=== PATIENT | female | born 1970 | race Caucasian/White ===

== ENCOUNTER 2017-11-28 15:11 | Emergency (ER) | payer OTHER ==
[2017-11-28 16:03] VITALS: BP 96/63
--- NOTE | 2017-11-28 16:41 | UC ---
Knee Pain HPI - HPI Summary HPI Summary: 47 y/o female presents to the urgent care c/o RT knee and Rt leg pain s/p stepping on a hole and falling yesterday at 1000am. Pt states pain was not as bad and she could bear weight and walk w/ limping. Last night she had to work standing all night and this morning she woke upe w/ mild keen swelling and severe pain. Pain is 8/10 sharp upon walking and movement, radiating to the RT lower leg w/ some numbness and tingling over the Rt foot. she applied cold compresses and took Ibuprofen PO 400mg to alleviate symptoms last night. Pt denies calf pain, fever, SOB, palpitations, chest pain, abdominal pain, N/V/D. Hx of uterine ablation. - History of Current Complaint Chief Complaint: UCLowerExtremity Stated Complaint: RIGHT LEG PAIN/S/P FALL Time Seen by Provider: 11/28/17 16:31 Hx Obtained From: Patient Hx Last Menstrual Period: 08/17/15 ?: No - Hx of uterine ablation Onset/Duration: Sudden Onset, Lasting Days - 1 day, Still Present, Worse Since - this morning Severity Initially: Moderate Severity Currently: Severe Location Of Injury: RT knee Pain Intensity: 8 Pain Scale Used: 0-10 Numeric Character: Sharp Aggravating Factor(s): Movement, Prolonged Standing, Stairs Alleviating Factor(s): Rest, OTC Meds Associated Signs And Symptoms: Positive: Numbness, Tingling - RT foot. Negative : Bruising, Fever, Weakness Able to Bear Weight: Yes - Risk Factors Septic Arthritis Risk Factor: Negative Gout Risk Factor: Negative - Allergies/Home Medications Allergies/Adverse Reactions: Allergies Allergy/AdvReac Type Severity Reaction Status Date / Time Sulfa (Sulfonamide Allergy Swelling Verified 11/28/17 16:01 Antibiotics) Of Face,Lips,& Throat environmental Allergy Hives Uncoded 11/28/17 16:01 PMH/Surg Hx/FS Hx/Imm Hx Previously Healthy: Yes - Pt denies PMHX - Surgical History Surgical History: Yes Surgery Procedure, Year, and Place: lump removed left side of chest 2002, right tennis elbow '; tubal ligatioin 1999, barretts esophagus - Family History Known Family History: Positive: Hypertension, Diabetes - Social History Occupation: Employed Full-time Lives: With Family Alcohol Use: Occasionally Alcohol Amount: 1 times per week Substance Use Type: None Smoking Status (MU): Never Smoked Tobacco Review of Systems Constitutional: Negative Skin: Negative Eyes: Negative ENT: Negative Respiratory: Negative Cardiovascular: Negative Gastrointestinal: Negative Genitourinary: Negative Motor: Negative Neurovascular: Negative Musculoskeletal: Decreased ROM - RT knee, Other: - RT knee pain and RT lower leg pain Neurological: Negative Psychological: Negative Is Patient Immunocompromised?: No All Other Systems Reviewed And Are Negative: Yes Physical Exam - Summary Physical Exam Summary: Vital Signs Reviewed: Yes General: well developed, well nourished female sitting in the examining table w/ o any apparent distress Eyes: Positive: Conjunctiva Clear - PERRLA, EOMI, fundi grossly normal ENT: Positive: Normal ENT inspection, Hearing grossly normal, Pharynx normal, TMs normal Neck: Positive: Supple, Nontender, No Lymphadenopathy Respiratory: Positive: Chest nontender, Lungs clear, Normal breath sounds, No respiratory distress Cardiovascular: Positive: RRR, No Murmur, Pulses Normal, Brisk Capillary Refill Abdomen Description: Positive: Nontender, No Organomegaly, Soft. Negative: CVA Tenderness (R), CVA Tenderness (L) Bowel Sounds: Positive: Present Musculoskeletal: Positive: Strength Intact, No Edema,RT Knee: Pt is able to bear weight and ambulate with limping. No surface trauma, soft tissue swelling, or obvious effusion. No overlying erythema or warmth. The RT knee is without obvious asymmetry or deformity when compared with the LF knee. Decreased ROM of LF knee due to pain. No tenderness to palpation of the patella, no effusion or ballottement. No tenderness over the infrapatellar tendon. No Point tenderness over the medial joint line, PT tenderness over lateral tibial plateaus. No tenderness over the proximal fibular head, No tenderness, fullness or mass of the popliteal fossa. No quadriceps tenderness. No laxity of the ACL. PCL, MCL, or LCL. no collateral ligament laxity to valgus or varus stress. Negative Magdalene/Drawer sign. Negative Lizzette unable to perform due to pain. Distal motor and neurovascular status intact. Neurological Exam: Normal Psychological Exam: Normal Skin Exam: Normal Triage Information Reviewed: Yes Vital Signs: Initial Vital Signs Temp 99.2 F 11/28/17 15:54 Pulse 71 11/28/17 15:54 Resp 15 11/28/17 15:54 BP 96/63 11/28/17 15:54 Pulse Ox 100 11/28/17 15:54 Knee Pain Course/Dx - Course Course Of Treatment: 47 y/o female presents to the urgent care c/o RT knee and Rt leg pain s/p stepping on a hole and falling yesterday at 1000am. Pt states pain was not as bad and she could bear weight and walk w/ limping. Last night she had to work standing all night and this morning she woke upe w/ mild keen swelling and severe pain. Pain is 8/10 sharp upon walking and movement, radiating to the RT lower leg w/ some numbness and tingling over the Rt foot. she applied cold compresses and took Ibuprofen PO 400mg to alleviate symptoms last night. Pt denies calf pain, fever, SOB, palpitations, chest pain, abdominal pain, N/V/D. Hx of uterine ablation. Hx obtained. RT knee and Rt leg X-ray ordered. Impression:No acute osseous injury or fracture observed.Probably a knee sprain. Pt's knee immobilized w/ knee brace and advised RICE. Rx Ibuprofen PO and advised to Avoid strenuous exercise or standing for long period of time and if not improvement of symptoms to f/u with Orthopedic Dr Fine or PCP in 1 week for further evaluation and treatment. PT understood and agreed with D/C instructions. - Differential Dx/Diagnosis Differential Diagnosis/HQI/PQRI: Abrasion, Contusion, Fracture (Closed), Sprain , Strain, Tendonitis Provider Diagnoses: 1- Acute Rt knee and lower leg pain s/p fall. 2-RT knee sprain Discharge - Sign-Out/Discharge Documenting (check all that apply): Discharge/Admit/Transfer - D/C home - Discharge Plan Condition: Stable Disposition: HOME Prescriptions: Ibuprofen TAB* [Motrin TAB* 600 MG] 600 mg PO Q6H PRN #30 tab PRN Reason: Pain Patient Education Materials: Knee Sprain (ED) Forms: *Work Release Referrals: Joanne Heard MD [Primary Care Provider] - 1 Week Brooklyn Fine MD [Medical Doctor] - 1 Week Additional Instructions: 1-Please take medications as directed to alleviate pain and swelling. 2-Please apply ice, keep your knee immobilized with the Knee immobilizer. avoid strenuous exercise or standing for long periods of time 3- Please f/u with Orthopedic DR Fine or your PCP in 1 week is not improvement of symptoms for further evaluation and treatment. - Billing Disposition and Condition Condition: STABLE Disposition: Home
[2017-11-28] MEDS ORDERED: Ibuprofen TAB* 400 MG PO ONE (16:45)
--- NOTE | 2017-11-28 17:34 | RAD ---
Indication: Right knee pain after fall 2 views of the right lower leg demonstrates no fracture. Ankle mortise is intact. No other bone or joint abnormality is noted. IMPRESSION: No fracture of the right lower leg is noted.
--- NOTE | 2017-11-28 17:35 | RAD ---
Indication: Right knee pain. 4 views of the right knee demonstrates no fracture. No other bone or joint abnormality is noted. IMPRESSION: No fracture of the right knee is noted.
== END 2017-11-28 17:50 | disposition home or self-care (01) ==
LOC: UCCORT 15:11
DX: S93.601A Unspecified sprain of right foot, initial encounter (principal); M79.661 Pain in right lower leg; W17.2XXA Fall into hole, initial encounter; Y93.9 Activity, unspecified; Y92.9 Unspecified place or not applicable; Z88.2 Allergy status to sulfonamides
CPT/HCPCS: 99213; A9270-GY; G0463

== ENCOUNTER 2018-01-21 13:34 | Emergency (ER) | payer OTHER ==
[2018-01-21 14:10] VITALS: BP 113/71
--- NOTE | 2018-01-21 14:55 | UC ---
Upper Extremity HPI - HPI Summary HPI Summary: Pt c/o left wrist pain after falling on 01/06 with FOOSH and last night after lifting a heavy object last night and hearing a "pop" sudden onset of pain and numbness. - History of Current Complaint Chief Complaint: UCUpperExtremity Stated Complaint: LEFT WRIST COMPLAINT Time Seen by Provider: 01/21/18 14:40 Hx Obtained From: Patient Hx Last Menstrual Period: ABLATION ?: No Onset/Duration: Sudden Onset, Lasting Days, Still Present Severity Initially: Moderate Severity Currently: Moderate Pain Intensity: 8 Location Of Pain: Is Discrete @ - left lateral wrist Character: Dull, Aching, Burning Aggravating Factor(s): Movement, Lifting Alleviating Factor(s): Rest Associated Signs And Symptoms: Positive: Numbness/Tingling Related History: Dominant Hand Right - Risk Factors Non-Orthopedic Risk Factor: Negative DVT Risk Factors: Negative Septic Arthritis Risk Factor: Negative Compartment Syndrome Risk Factors: Pain, Paresthesias - Allergies/Home Medications Allergies/Adverse Reactions: Allergies Allergy/AdvReac Type Severity Reaction Status Date / Time Sulfa (Sulfonamide Allergy Swelling Verified 11/28/17 16:01 Antibiotics) Of Face,Lips,& Throat environmental Allergy Hives Uncoded 11/28/17 16:01 Home Medications: Home Medications NK [No Home Medications Reported] 01/21/18 [History Confirmed 01/21/18] PMH/Surg Hx/FS Hx/Imm Hx Previously Healthy: Yes - Surgical History Surgical History: Yes Surgery Procedure, Year, and Place: lump removed left side of chest 2002, right tennis elbow '; tubal ligatioin 1999, barretts esophagus, UTERINE ABLATION - Family History Known Family History: Positive: None, Hypertension, Diabetes - Social History Occupation: Employed Full-time Lives: With Family Alcohol Use: Occasionally Alcohol Amount: 1 times per week Substance Use Type: None Smoking Status (MU): Never Smoked Tobacco Have You Smoked in the Last Year: No Review of Systems Constitutional: Negative Skin: Negative Eyes: Negative ENT: Negative Respiratory: Negative Cardiovascular: Negative Gastrointestinal: Negative Genitourinary: Negative Motor: Decreased ROM - left wrist, Weakness - left wrist Neurovascular: Negative Musculoskeletal: Arthralgia, Decreased ROM, Myalgia Neurological: Numbness Psychological: Negative Is Patient Immunocompromised?: No All Other Systems Reviewed And Are Negative: Yes Physical Exam Triage Information Reviewed: Yes Appearance: Well-Appearing Vital Signs: Initial Vital Signs Temp 98.8 F 01/21/18 14:03 Pulse 72 01/21/18 14:03 Resp 16 01/21/18 14:03 BP 113/71 01/21/18 14:03 Pulse Ox 100 01/21/18 14:03 Vital Signs Reviewed: Yes Eye Exam: Normal ENT Exam: Normal Neck exam: Normal Respiratory Exam: Normal Cardiovascular Exam: Normal Musculoskeletal: Positive: Strength Limited @ - left wrist, ROM Limited @ - left wrist Neurological Exam: Normal Neurological: Positive: Alert Psychological Exam: Normal Skin Exam: Normal Diagnostics - Radiology No standard instances Radiology Interpretation Completed By: Radiologist - REPORT: The visualized bones are properly aligned and well corticated. The joint spaces are normal.There is no fracture, dislocation or other focal osseous abnormality. IMPRESSION: No radiographically apparent fracture or dislocation. If the patient's symptoms persist, follow-up imaging is recommended. Upper Extremity Course/Dx - Differential Dx/Diagnosis Differential Diagnosis/HQI/PQRI: Contusion, Fracture (Closed), Strain, Sprain Provider Diagnoses: left wrist contusion. left wrist strain Discharge - Sign-Out/Discharge Documenting (check all that apply): Patient Departure - Discharge Plan Condition: Stable Disposition: HOME Patient Education Materials: Arthralgia (ED) Referrals: Ramonita Adams MD [Primary Care Provider] - If Needed Ita Ontiveros MD [Medical Doctor] - Additional Instructions: Per institutional requirements, I have reviewed the chart, however, I was not consulted specifically or made aware of this patient by the above midlevel provider. I did not personally evaluate, interact with , or disposition this patie - Billing Disposition and Condition Condition: STABLE Disposition: Home
--- NOTE | 2018-01-21 16:04 | RAD ---
INDICATION: Pain and numbness at the left wrist. COMPARISON: None. TECHNIQUE: 3 views left wrist. REPORT: The visualized bones are properly aligned and well corticated. The joint spaces are normal.There is no fracture, dislocation or other focal osseous abnormality. IMPRESSION: No radiographically apparent fracture or dislocation. If the patient's symptoms persist, follow-up imaging is recommended.
== END 2018-01-21 16:15 | disposition home or self-care (01) ==
LOC: UCCORT 13:34
DX: S60.212A Contusion of left wrist, initial encounter (principal); S66.912A Strain of unspecified muscle, fascia and tendon at wrist and hand level, left hand, initial encounter; M25.532 Pain in left wrist; Z88.2 Allergy status to sulfonamides; Z91.09 Other allergy status, other than to drugs and biological substances; X50.0XXA Overexertion from strenuous movement or load, initial encounter; Y93.89 Activity, other specified; Y92.9 Unspecified place or not applicable
CPT/HCPCS: 99212; G0463

== ENCOUNTER 2018-03-12 13:36 | Emergency (ER) | payer OTHER ==
--- OUTSIDE RECORDS SUMMARY | 2018-03-12 13:54 | XMS REPORT ---
:1970 External Reference #:[id number] Author Organization [facility] Address [address] [place] [address] Phone [phone] Care Team Providers Name Role Phone Raf Razo MD Care Team Information Pearl Restorer Unavailable Joanne Heard MD Primary Care Physician Unavailable Payers Type Date Identification Numbers Payment Provider Subscriber Commercial Effective: Policy Number: [id number] [facility] ANISH Reinoso 2014 PayID: [id number] [address] [place] [address] Problems Date Description Provider Status Onset: 03/05/2018 Allergy status to oth Ian Eaton MD Active drug/meds/biol subst status Social History Type Date Description Comments Home Environment Unfinished Basement Home Environment The basement is wet Home Environment The floors are tile Home Environment The floors are wood Home Environment Uses oil heating Home Environment [place] Heat Smoke-Free Home is smoke-free Smoke-Free Work is smoke-free Pets 3 cats Pets several cats 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 No Second Hand Smoke Exposure Smoking Patient smoking status is unknown Allergies, Adverse Reactions, Alerts Date Description Reaction Status Severity Comments 03/05/2018 Sulfa Antibiotics Turns skin red active 03/05/2018 Adhesives Red rash active Medications Medication Date Status Form Strength Qnty SIG Indications Ordering Provider Ranitidine HCL Active Tablets 150mg Raf Razo MD Vital Signs Date Vital Result Comment 03/05/2018 BP Systolic 96 mmHg BP Diastolic 60 mmHg Height 64.5 inches 5'4.50" Weight 107.50 lb BMI (Body Mass Index) 18.2 kg/m2 Heart Rate 73 /min Respiratory Rate 14 /min Body Temperature 98.5 F O2 % BldC Oximetry 99 % Results Description No Information Procedures Description No Information Plan of Care No Information Available
--- OUTSIDE RECORDS SUMMARY | 2018-03-12 13:54 | XMS REPORT ---
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 Joanne Heard MD Primary Care Physician Unavailable Payers Type Date Identification Numbers Payment Provider Subscriber Commercial Effective: Policy Number: [id number] [facility] ANISH Reinoso 2014 PayID: [id number] [address] [place] [address] Problems Date Description Provider Status Onset: 03/05/2018 Allergy status to oth Ian Eaton MD Active drug/meds/biol subst status Social History Type Date Description Comments Home Environment Unfinished Basement Home Environment The basement is wet Home Environment The floors are tile Home Environment The floors are wood Home Environment Uses oil heating Home Environment [place] Heat Smoke-Free Home is smoke-free Smoke-Free Work is smoke-free Pets 3 cats Pets several cats 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
--- OUTSIDE RECORDS SUMMARY | 2018-03-12 13:54 | XMS REPORT ---
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 Joanne Heard MD Primary Care Physician Unavailable Payers Type Date Identification Numbers Payment Provider Subscriber Commercial Effective: Policy Number: [id number] [facility] ANISH Reinoso 2014 PayID: [id number] [address] [place] [address] Problems Description No Information Social History Type Date Description Comments Home Environment Unfinished Basement Home Environment The basement is wet Home Environment The floors are tile Home Environment The floors are wood Home Environment Uses oil heating Home Environment Green Heat Smoke-Free Home is smoke-free Smoke-Free Work is smoke-free Pets 3 cats Pets several cats 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
--- OUTSIDE RECORDS SUMMARY | 2018-03-12 13:55 | XMS REPORT ---
:1970 External Reference #:[id number] Author Organization [facility] Address [address], [address] [place] [address] Phone [phone] Care Team Providers Name Role Phone Madie Delatorre PA Care Team Information Polysomnography Technologist Unavailable Joanne Heard MD Primary Care Physician Unavailable Payers Type Date Identification Numbers Payment Provider Subscriber Commercial Policy Number: [id number] [place] [employer] Mini Reinoso PayID: [id number] [address] [place] [address] Medicaid Expires: 2014 Policy Number: [id number] Medicaid Mini Reinoso PayID: [id number] [address] [place] [address] Problems Date Description Provider Status Onset: 02/07/2017 Digestive symptom Rfa Razo MD Active Onset: 02/07/2017 Abdominal pain Raf Razo MD Active Onset: 05/24/2016 Casas's esophagus Raf Razo MD Active Onset: 05/24/2016 Gastroduodenitis Raf Razo MD Active Onset: 04/07/2016 Abnormal findings diagnostic imaging of Raf Razo MD Active liver+biliary tract Onset: 04/07/2016 Generalized abdominal tenderness Raf Razo MD Active Onset: 04/07/2016 Right upper quadrant pain Raf Razo MD Active Family History Date Family Member(s) Problem(s) Comments Onset: (age 70 Years) Father Colon Polyps Social History Type Date Description Comments Marital Status Home Environment Lives With Occupation [employer] Work Status Currently Working ETOH Use Occasionally consumes alcohol Smoking Patient has never smoked Recreational Drug Use Denies Drug Use Allergies, Adverse Reactions, Alerts Date Description Reaction Status Severity Comments 04/07/2016 Keflex active 04/07/2016 Sulfa Drugs active 04/07/2016 Tussin DM active 05/24/2016 Prilosec active Medications Medication Date Status Form Strength Qnty SIG Indications Ordering Provider No Active Active Unknown Medications 018 No Active Hx Unknown Medications 017 - 017 Bentyl Hx Capsules 10mg 90caps cap by R10.30 Ruddy Mercedes - mouth three 018 times a day as needed for crampy abd pain Esomeprazole Hx Capsules 20mg 90caps 1 cap by K22.70 Yenny Mercedes 017 - DR zackary PARHAM every day 018 every morning Omeprazole Hx Tablets DR 20mg 1 tab by R10.11 Link Mercedes MD every day every morning Dicyclomine HCL Hx Capsules 10mg 90caps 1 cap by R10.817 Link Mercedes mouth for MD abd pain as needed Prilosec Hx Capsules 40mg 30caps 1 tab by R10.11 Link Mercedes - DR mouth every day 016 every morning Ibuprofen 00/00/0 Hx Capsules 200mg as needed Unknown 000 Vital Signs Date Vital Result Comment 02/20/2018 BP Systolic Sitting Left Arm 100 mmHg BP Diastolic Sitting Left Arm 74 mmHg Heart Rate 72 /min Respiratory Rate 16 /min Height 63 inches 5'3" Weight 106.00 lb BMI (Body Mass Index) 18.8 kg/m2 BSA (Body Surface Area) 1.48 m2 Buras body weight in kilograms 52 O2 % BldC Oximetry 98 % 02/07/2017 BP Systolic Sitting Left Arm 104 mmHg BP Diastolic Sitting Left Arm 74 mmHg Heart Rate 72 /min Respiratory Rate 16 /min Height 63 inches 5'3" Weight 97.00 lb BMI (Body Mass Index) 17.2 kg/m2 BSA (Body Surface Area) 1.42 m2 Buras body weight in kilograms 52 05/24/2016 BP Systolic Sitting Left Arm 110 mmHg BP Diastolic Sitting Left Arm 76 mmHg Heart Rate 77 /min Respiratory Rate 16 /min Height 63 inches 5'3" Weight 107.00 lb BMI (Body Mass Index) 19.0 kg/m2 BSA (Body Surface Area) 1.48 m2 04/07/2016 BP Systolic Sitting Left Arm 104 mmHg BP Diastolic Sitting Left Arm 70 mmHg Heart Rate 75 /min Respiratory Rate 16 /min Height 63 inches 5'3" Weight 106.00 lb BMI (Body Mass Index) 18.8 kg/m2 BSA (Body Surface Area) 1.48 m2 Buras body weight in kilograms 52 Results Test Date Test Result H/L Range Note Laboratory test finding 02/13/2017 Calprotectin, Fecal 20 ug/g 0-120 1, 2 Pancreatic Elastase (Pe-1) 432.0 ug/g >200 1, 3 Fecal Fat, Qualitative 02/13/2017 Fats, Neutral Normal . 1, 4 Fats, Total Normal . 1, 5 Stool Culture 02/13/2017 Stool Culture NO ENTERIC PATHO <SEE NOTE> 1, 6 . ................ <SEE NOTE> 1, 7 Note: INCLUDES TESTING <SEE NOTE> 1, 8 . PLESIOMONAS, CAM <SEE NOTE> 1, 9 . ................ <SEE NOTE> 1, 10 . YERSINIA AND VIB <SEE NOTE> 1, 11 . SHOULD BE REQUES <SEE NOTE> 1, 12 Shiga Toxin 1 Antigen SHIGA TOXIN 1 NO <SEE NOTE> 1, 13 Shiga Toxin 2 Antigen SHIGA TOXIN 2 NO <SEE NOTE> 1, 14 Ova & Parasite 02/13/2017 Cryptosporidium Specific NEGATIVE FOR CRY 1, 15 Antigen Screen Ag <SEE NOTE> Giardia Specific Antigen NEGATIVE FOR LOLY <SEE NOTE> 1, 16 Celiac Disease Comp AB Profile 02/08/2017 Immunoglobulin A 334 mg/dL 87- 352 17 Antigliadin Abs, IgG 2 units 0-19 17, 18 Antigliadin Abs, IgA 12 units 0-19 17, 19 Endomysial IgA Antibody Negative Negative 17 t-Transglutaminase IgA <2 U/mL 0-3 17, 20 t-Transglutaminase IgG <2 U/mL 0-5 17, 21 Laboratory test finding 02/08/2017 TSH Reflex FT4 and/or 0.44 uIU/mL 0.30 -4.20 17 FT3 Calprotectin, Fecal <pending> 17 Laboratory test finding 02/08/2017 Ova & Parasite Antigen Screen <pending> 17 Laboratory test finding 02/08/2017 C-Reactive Protein,Quant < 2.9 mg/L < 3.0 17 Vitamin D,25-Hydroxy 38.5 ng/mL 30.0-100.0 17, 22 Laboratory test finding 02/08/2017 C. Difficile Toxin B By PCR <pending> 17 Afp Tumor Marker,Serum 3.1 ng/mL 0.0-8.3 17, 23 Sedimentation Rate 10 mm/hr 0-20 17, 24 Laboratory test finding 05/24/2016 Magnesium 2.3 mg/dL 1.8-2.4 25 Vitamin D,25-Hydroxy 25.0 ng/mL Low 30.0-100.0 25, 26 Ala,Delta,Random Urine 1.1 mg/L 0.0-5.4 25, 27 Complement C4, Serum 27 mg/dL 14-44 25 C1 Esterase Inhibitor 25 mg/dL 21-39 25 C1 Esterase Inhibitor Function 110 %meanno . 25, 28 H. Pylori Stool Antigen 04/10/2016 H. Pylori Stool Antigen Negative Negative 29, 30 @[facility] Pat Id: [id number] 29 @[facility] Req #: [id number] 29 CBS W/Automated Diff 04/10/2016 White Blood Count 5.6 K/uL 3.1-10.7 29 Red Blood Count 4.03 M/uL 3.90-5.40 29 Hemoglobin 13.1 gm/dL 11.6-15.8 29 Hematocrit 39.2 % 36.0-46.1 29 Mean Cell Volume 97.3 fl 80.9-99.0 29 Mean Corpuscular HGB 32.5 pg 25.9-32.7 29 Mean Corpuscular HGB Conc 33.4 g/dL 30.8-34.3 29 Platelet Count 219 K/uL 155-360 29 Red Cell Distri Width SD 40.8 fl 3-47 29 Red Cell Distri Width %CV 11.8 % 11.7-14.4 29 Mean Platelet Volume 10.5 fL 8.9-12.4 29 Neut% 54.9 % 40.4-72.8 29 Lymph % 33.9 % 17.0-46.1 29 [place] % 10.5 % 4.3-13.2 29 Eo% 0.5 % 0.0-6.6 29 Bas% 0.2 % 0.0-1.1 29 Neut# 3.08 K/uL 1.8-7.0 29 Lymph # 1.90 K/uL 1.8-7.0 29 [place] # 0.59 K/uL 0.3-0.9 29 Eos # 0.03 K/uL 0.0-0.5 29 Baso # 0.01 K/uL 0.0-0.1 29 @[facility] Pat Id: [id number] 29 @[facility] Req #: [id number] 29 Lipase 04/10/2016 Lipase 242 U/L 73-393 29 @[facility] Pat Id: [id number] 29 @[facility] Req #: [id number] 29 Is Patient Fasting? Non-Fasting 29 Amylase 04/10/2016 Amylase 74 U/L 25-115 29 @[facility] Pat Id: [id number] 29 @[facility] Req #: [id number] Is Patient Fasting? Non-Fasting 29 Comprehensive Metabolic Panel 04/10/2016 Glucose 80 mg/dL 74-106 29 BUN 10 mg/dL 7-18 29 Creatinine 0.6 mg/dL 0.6-1.3 29 Glom Filtration Rate, Estimate >60 mL/min >60 29 If >60 mL/min >60 29, 31 BUN/Creat 16.6 ratio 29 Sodium 140 mmol/L 136-145 29 Potassium 3.4 mmol/L Low 3.5-5.1 29 Chloride 105 mmol/L 98-107 29 Carbon Dioxide 30 mmol/L 21-32 29 Anion Gap 5 mEq/L Low 8-16 29 Calcium 8.6 mg/dL 8.5-10.1 29 Total Protein 7.4 g/dL 6.4-8.2 29 Albumin 3.8 g/dL 3.4-5.0 29 Globulin 3.6 g/dL 1.9-4.3 29 Alb/Glob 1.1 ratio 29 Bilirubin,Total 0.5 mg/dL 0.2-1.0 29 Sgot/Ast 11 U/L Low 15-37 29, 32 SGPT/Alt 14 U/L 12-78 29 Alkaline Phosphatase 61 U/L 45-117 29 @[facility] Pat Id: [id number] 29 @[facility] Req #: [id number] 29 Is Patient Fasting? Non-Fasting 29 1 R19.4 R93.2 K22.70 2 Concentration Interpretation Follow-Up <16 - 50 ug/g Normal None >50 -120 ug/g Borderline Re-evaluate in 4-6 weeks >120 ug/g Abnormal Repeat as clinically indicated 3 INFCE Result Units: ug Elast./g Severe Pancreatic Insufficiency: <100 Moderate Pancreatic Insufficiency: 100 - 200 Normal: >200 Performed at: [address] [id number] Student Services Counselor: Chikis Palomino MD, Phone: [phone] Performed at: [facility] [id number] Student Services Counselor: Antonio Nation MD, Phone: [phone] 4 Normal (<60 Droplets/HPF) 5 Normal (<100 Droplets/HPF) 6 NO ENTERIC PATHOGENS ISOLATED 7 ................................................... 8 INCLUDES TESTING FOR SALMONELLA, SHIGELLA, AEROMONAS, 9 PLESIOMONAS, CAMPYLOBACTER, AND E. COLI 0157:H7 10 ................................................... 11 YERSINIA AND VIBRIO ARE NOT ROUTINELY SCREENED FOR AND 12 SHOULD BE REQUESTED SEPARATELY NO YERSINIA ISOLATED 13 SHIGA TOXIN 1 NOT DETECTED 14 SHIGA TOXIN 2 NOT DETECTED Method: ImmunoCard STAT/EHEC Rapid Immunochromatographic Assay 15 NEGATIVE FOR CRYPTOSPORIDIUM SPECIFIC ANTIGEN 16 NEGATIVE FOR GIARDIA SPECIFIC ANTIGEN. The specimen will be held for 5 days. Additional testing may be performed upon request if the antigen tests are negative, and the patient is still symptomatic or has traveled to an endemic region. Method: Alere Quik Chek Rapid Membrane Enzyme Immunoassay 17 R93.2, R19.4, K22.70 18 Negative 0 - 19 Weak Positive 20 - 30 Moderate to Strong Positive >30 19 Negative 0 - 19 Weak Positive 20 - 30 Moderate to Strong Positive >30 20 Negative 0 - 3 Weak Positive 4 - 10 Positive >10 Tissue Transglutaminase (tTG) has been identified as the endomysial antigen. Studies have demonstr- ated that endomysial IgA antibodies have over 99% specificity for gluten sensitive enteropathy. 21 Negative 0 - 5 Weak Positive 6 - 9 Positive >9 Performed at: [address] [id number] Student Services Counselor: Chikis Palomino MD, Phone: [phone] 22 Vitamin D deficiency has been defined by the [place] [employer] and an Endocrine Society practice guideline as a level of serum 25-OH vitamin D less than 20 ng/mL (1,2). The Endocrine Society went on to further define vitamin D insufficiency as a level between 21 and 29 ng/mL (2). 1. IOM ([place] [employer]). 2010. Dietary reference intakes for calcium and D. [place]: The National Academies Press. 2. Lisa Greene, Freddy SANTOS, et al. Evaluation, treatment, and prevention of vitamin D deficiency: an Endocrine Society clinical practice guideline. JCEM. 2010; 96(7):1911-30. Performed at: [address] [id number] Student Services Counselor: Chikis Palomino MD, Phone: [phone] 23 Normal values apply only to males and to non females. These results are not interpretable for females. David ECLIA methodology. Values obtained with different assay methods or kits cannot be used interchangeably. Results cannot be interpreted as absolute evidence of the presence or absence of malignant disease. 24 Method: Sediplast Modified Westergren 25 R10.817 K22.70 26 Vitamin D deficiency has been defined by the [place] [employer] and an Endocrine Society practice guideline as a level of serum 25-OH vitamin D less than 20 ng/mL (1,2). The Endocrine Society went on to further define vitamin D insufficiency as a level between 21 and 29 ng/mL (2). 1. IOM ([place] [employer]). 2010. Dietary reference intakes for calcium and D. [place]: The National Academies Press. 2. Lisa Greene, Freddy SANTOS, et al. Evaluation, treatment, and prevention of vitamin D deficiency: an Endocrine Society clinical practice guideline. JCEM. 2010; 96(7):1911-30. Performed at: [address] [id number] Student Services Counselor: Chikis Palomino MD, Phone: [phone] 27 This test was developed and its performance characteristics determined by [facility]. It has not been cleared or approved by the Food and Drug Administration. 28 Abnormal <41 Equivocal 41 - 67 Normal >67 Performed at: [facility] [address] [place], [place] [id number] Student Services Counselor: Chikis Palomino MD, Phone: [phone] Performed at: [facility] [id number] Student Services Counselor: Antonio Nation MD, Phone: [phone] 29 R10.11 30 Performed at: [facility] [address] [id number] Student Services Counselor: Chikis Palomino MD, Phone: [phone] 31 Note: Persistent reduction for 3 months or more in an eGFR <60 mL/min/1.73 m2 defines CKD. Patients with eGFR values >/=60 mL/min/1.73 m2 may also have CKD if evidence of persistent proteinuria is present. The original MDRD equation for estimated GFR is not valid for patients less than 18 years of age. Additional information may be found at www.kdoqi.org. 32 Values below the stated reference ranges of AST and ALT can be seen in normal populations. Clinical correlation is suggested. Procedures Date CPT Code Description Status 05/02/2016 77440 EGD With Biopsy Completed Encounters Type Date Location Provider CPT E/M Dx Office Visit 02/20/2018 2:00[place] [address] R93.2 R10.30 K22.70 Office Visit 02/07/2017 11:00a [place] [address] R93.2 R10.30 K22.70 R19.4 Office Visit 05/24/2016 1:30p [place] [address] K22.70 K29.70 R10.817 R93.2 Office Visit 04/07/2016 2:00p [place] [address] R10.11 R10.817 R93.2 Plan of Care Future Appointment(s):08/22/2018 1:00 pm - Juarez Lund MD at 02/20/2018 - ISAMAR Mercedes93.2 Abnormal findings on dx imaging of liver and biliary tractComments:Will need to repeat US in 6 months StableFollow up:F/U in 6 [id number] Lower abdominal pain, unspecifiedComments:She denies glaucoma 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
--- NOTE | 2018-03-12 14:00 | UC ---
Upper Extremity HPI - HPI Summary HPI Summary: 48 yo female presents with RIGHT arm pain. She tells me that this morning she woke up with pain radiating from her right wrist to her right elbow. 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 She took tylenol this morning around 0300 and had no relief. The arm is sensitive to light touch. Denies numbness or tingling. - History of Current Complaint Stated Complaint: RIGHT ARM PAIN Time Seen by Provider: 03/12/18 14:00 Hx Obtained From: Patient Hx Last Menstrual Period: ABLATION Onset/Duration: Sudden Onset Severity Initially: Severe Severity Currently: Severe Pain Intensity: 10 Pain Scale Used: 0-10 Numeric - Allergies/Home Medications Allergies/Adverse Reactions: Allergies Allergy/AdvReac Type Severity Reaction Status Date / Time Sulfa (Sulfonamide Allergy Swelling Verified 03/12/18 14:01 Antibiotics) Of Face,Lips,& Throat environmental Allergy Hives Uncoded 03/12/18 14:01 Home Medications: Home Medications Ranitidine TAB (NF) [Zantac TAB (NF)] 1 tab DAILY 03/12/18 [History Confirmed ] PMH/Surg Hx/FS Hx/Imm Hx - Additional Past Medical History Additional PMH: Casas's esophagus GI/ History: Gastroesophageal Reflux - Surgical History Surgical History: Yes Surgery Procedure, Year, and Place: lump removed left side of chest 2002, right tennis elbow '; tubal ligatioin 1999, barretts esophagus, UTERINE ABLATION - Family History Known Family History: Positive: Hypertension, Diabetes - Social History Lives: With Family Alcohol Use: Occasionally Alcohol Amount: 1 times per week Substance Use Type: None Smoking Status (MU): Never Smoked Tobacco Have You Smoked in the Last Year: No Review of Systems Constitutional: Negative Skin: Negative Respiratory: Negative Cardiovascular: Negative Neurovascular: Negative Musculoskeletal: Other: - Right forearm pain Neurological: Negative Psychological: Negative All Other Systems Reviewed And Are Negative: Yes Physical Exam - Summary Physical Exam Summary: GENERAL: NAD. WDWN. No pain distress. SKIN: No rashes, sores, lesions, or open wounds. CHEST: No accessory muscle use. Breathing comfortably and in no distress. CV: Pulses intact radial and ulnar. Cap refill <2seconds MSK: RIGHT ARM: Pain out of proportion to exam. Pain with light brushing against right forearm from wrist to elbow. FROM, but has pain supinating. Cannot calender tender. No edema or obvious bony deformities. No erythema or ecchymosis. NEURO: Alert. Sensations intact hand and all fingers. PSYCH: Age appropriate behavior. Triage Information Reviewed: Yes Vital Signs: Vital Signs: Temp Pulse Resp BP Pulse Ox 98.9 F 77 16 109/73 98 03/12/18 14:02 03/12/18 14:02 03/12/18 14:02 03/12/18 14:02 03/12/18 14:02 Vital Signs Reviewed: Yes Upper Extremity Course/Dx - Course Course Of Treatment: XR: IMPRESSION: #. Negative exam. Suspect irritation to the nerve and offered pt a sling or arm splint/brace, but she declined saying that "nothing will help". Advised to ice the arm and continue resting. Her symptoms have been present less than 12 hours. Strongly encouraged to schedule a f/u with her Orthopedic doctor in [place] for further evaluation. - Differential Dx/Diagnosis Provider Diagnoses: Right forearm pain Discharge - Sign-Out/Discharge Documenting (check all that apply): Patient Departure All imaging exams completed and their final reports reviewed: Yes - Discharge Plan Condition: Stable Disposition: HOME Patient Education Materials: Arm Pain (ED) Forms: *Work Release Referrals: Ramonita Adams MD [Primary Care Provider] - Additional Instructions: If you develop a fever, shortness of breath, chest pain, new or worsening symptoms - please call your PCP or go to the ED. 1) Please follow up with [facility] orthopedics in [place] for further evaluation - Billing Disposition and Condition Condition: STABLE Disposition: Home
[2018-03-12 14:08] VITALS: BP 109/73
--- NOTE | 2018-03-12 14:47 | RAD ---
Indication: RIGHT arm pain radiating from the wrist to above the elbow without proceeding injury. Comparison: No relevant prior exams available on the [facility] PACS for comparison. Technique: AP and lateral views RIGHT radius and ulna. Report: Normal articular alignment. No cortical disruption or suspicious trabecular irregularity to suggest fracture. No arthropathic change evident. Unremarkable soft tissue contours. IMPRESSION: #. Negative exam.
== END 2018-03-12 14:58 | disposition home or self-care (01) ==
LOC: UCCORT 13:36
DX: M79.631 Pain in right forearm (principal); M25.531 Pain in right wrist; M25.521 Pain in right elbow; K21.9 Gastro-esophageal reflux disease without esophagitis; Z88.2 Allergy status to sulfonamides; Z91.09 Other allergy status, other than to drugs and biological substances; Z79.899 Other long term (current) drug therapy
CPT/HCPCS: 99211; G0463

== ENCOUNTER 2019-01-22 09:41 | Emergency (ER) | payer OTHER ==
[2019-01-22 15:33] LABS: ABS Lymphocytes 1.4 10^3/ul (1.0-4.8); ABS Monocytes 0.4 10^3/ul (0-0.8); ABS Neutrophils 2.4 10^3/ul (1.5-7.7); Eosinophil % 0.4 %; Hematocrit 41 % (35-47); Hemoglobin 14.1 g/dL (12.0-16.0); Lymphocyte % 33.6 %; Mean Corpuscular HGB Conc 34 g/dL (31-36); Mean Corpuscular Hemoglobin 33 pg (27-31); Mean Corpuscular Volume 97 fL (80-97); Platelet Count 225 10^3/uL (150-450); Red Blood Count 4.25 10^6 /uL (3.70-4.87); Red Cell Distribution Width 13 % (10-15); White Blood Count 4.2 10^3/uL (3.5-10.8)
--- NOTE | 2019-01-22 19:18 | UC ---
- Progress Note Progress Note: Rt knee xray - no osseous injury. rpt if sx rpt. staff called pt Course/Dx - Diagnoses Provider Diagnoses: Knee pain, right Discharge - Sign-Out/Discharge Documenting (check all that apply): Post-Discharge Follow Up All imaging exams completed and their final reports reviewed: Yes - Discharge Plan Condition: Stable Disposition: HOME Referrals: Ramonita Adams MD [Primary Care Provider] - - Billing Disposition and Condition Condition: STABLE Disposition: Home
== END 2019-01-22 11:45 | disposition home or self-care (01) ==
LOC: UCCORT 09:41
DX: M25.561 Pain in right knee (principal)
CPT/HCPCS: 36415; 85025; 99212; G0463